=== PATIENT | male | born 1995 | race Two or more races ===

== ENCOUNTER 2024-07-12 17:17 | Inpatient (IN) | payer OTHER ==
[2024-07-12 19:55] VITALS: BMI 26.6
[2024-07-12] MEDS ORDERED: chlordiazePOXIDE HCL 25 MG CAPSULE PO PRN (20:31)
[2024-07-12] MEDS ORDERED: BENZOCAINE/MENTHOL (CHLORASEPTIC ) LOZENGE MM PRN (20:32)
[2024-07-12] MEDS ORDERED: DICYCLOMINE HCL 10 MG CAPSULE PO PRN (20:32)
[2024-07-12] MEDS ORDERED: BISMUTH SUBSALICYLATE 524 MG/30 ML PO PRN (20:32)
[2024-07-12] MEDS ORDERED: guaiFENesin 600 MG TABLET.ER (FP) PO PRN (20:32)
[2024-07-12] MEDS ORDERED: MAGNESIUM HYDROX 2400MG/30ML ORAL SUSPENSION 30 ML CUP PO PRN (20:32)
[2024-07-12] MEDS ORDERED: ACETAMINOPHEN 325 MG TABLET (FP) PO PRN (20:32)
[2024-07-12] MEDS ORDERED: ONDANSETRON *ODT* 4 MG TABLET SL PRN (20:32)
[2024-07-12] MEDS ORDERED: LOPERAMIDE HCL 2 MG CAPSULE PO PRN (20:32)
[2024-07-12] MEDS ORDERED: BENZONATATE 200 MG CAPSULE PO PRN (20:32)
[2024-07-12] MEDS ORDERED: POLYETHYLENE GLYCOL (HEALTHYLAX) 3350 17 GM PACKET PO PRN (20:32)
[2024-07-12] MEDS ORDERED: MAG HYDROX/AL HYDROX/SIMETH 30 ML UNIT-DOSE CUP PO PRN (20:32)
[2024-07-12] MEDS ORDERED: P-EPHED 60MG/TRIPROLIDI 2.5MG TABLET PO PRN (20:32)
[2024-07-12] MEDS ORDERED: IBUPROFEN 600 MG TABLET (FP) PO PRN (20:32)
[2024-07-12] MEDS ORDERED: IBUPROFEN 400 MG TABLET (FP) PO PRN (20:32)
[2024-07-12] MEDS ORDERED: chlordiazePOXIDE HCL 25 MG CAPSULE ONE (21:46)
[2024-07-12] MEDS ORDERED: propRANOLol HCL 10 MG TABLET ONE (21:46)
[2024-07-12] MEDS: propRANOLol HCL 10 MG TABLET PO ONE (21:50)
[2024-07-12] MEDS: chlordiazePOXIDE HCL 25 MG CAPSULE PO ONE (21:51)
[2024-07-12] MEDS: MELATONIN 5 MG TABLETS PO SCH (22:50)
[2024-07-12] MEDS: METHOCARBAMOL 500 MG TABLET PO PRN (22:50)
[2024-07-12] MEDS: hydrOXYzine PAMOATE 25 MG CAPSULE (FP) PO PRN (22:50)
[2024-07-12] MEDS: THIAMINE 100 MG TABLET PO SCH (22:51)
[2024-07-12] MEDS: SILVER SULFADIAZINE 1% TOP CREAM 50 GM JAR TP SCH (22:58)
[2024-07-12] MEDS: chlordiazePOXIDE HCL 25 MG CAPSULE PO SCH (23:47)
[2024-07-13] MEDS: PRENATAL VITAMINS W/ FOLIC ACID TABLET (FP) PO SCH (10:12)
[2024-07-13 13:32] LABS: HEMATOCRIT 36.6 % (35.4-49); HEMOGLOBIN 12.1 GM/dL (11.7-16.9); MCH 30.2 pg (25.7-33.7); MEAN CELL VOLUME 91.7 fl (80-96); MEAN PLT VOLUME 7.4 fl (7.5-11.1); PLATELET COUNT 310 10^3/uL (134-434); RBC 3.99 M/mm3 (4.00-5.60); RDW 16.2 % (11.9-15.9); WHITE BLOOD COUNT 4.1 K/mm3 (4.0-10.0)
[2024-07-13 15:15] LABS: CHLORIDE 108 mmol/L (98-107); POTASSIUM 4.2 mmol/L (3.5-5.1); SODIUM 143 mmol/L (136-145)
[2024-07-13 15:19] LABS: ALBUMIN 3.6 g/dl (3.4-5.0); ANION GAP 9 mmol/L (4-13); BLOOD UREA NITROGEN 12.9 mg/dL (7-18); CO2 26 mmol/L (21-32)
[2024-07-13 15:21] LABS: GLUCOSE,RANDOM 105 mg/dL (74-106)
[2024-07-13 15:22] LABS: CREATININE 0.7 mg/dL (0.55-1.3); SGOT/AST 145 U/L (15-37); SGPT/ALT 329 U/L (13-61)
[2024-07-13 15:24] LABS: BILIRUBIN,TOTAL 0.4 mg/dL (0.2-1); TOT PROT 6.5 g/dl (6.4-8.2)
[2024-07-13 15:25] LABS: ALK PHOS 106 U/L (45-117)
[2024-07-13] MEDS: SUVOREXANT 10 MG TABLET PO PRN (22:22)
[2024-07-14] MEDS: chlordiazePOXIDE HCL 25 MG CAPSULE PO SCH (06:01)
[2024-07-15] MEDS ORDERED: chlordiazePOXIDE HCL 10 MG CAPSULE PO PRN
[2024-07-15] MEDS: chlordiazePOXIDE HCL 10 MG CAPSULE PO SCH (05:35)
[2024-07-15 09:56] LABS: BASO % 1.4 % (0-2.0); EOS % 1.7 % (0-4.5); HEMATOCRIT 35.7 % (35.4-49); HEMOGLOBIN 11.8 GM/dL (11.7-16.9); LYMPH % 31.6 % (8-40); MCH 30.3 pg (25.7-33.7); MCHC 33.1 g/dl (32.0-35.9); MEAN CELL VOLUME 91.5 fl (80-96); MEAN PLT VOLUME 7.8 fl (7.5-11.1); MONO % 7.8 % (3.8-10.2); NEUT % 57.5 % (42.8-82.8); PLATELET COUNT 278 10^3/uL (134-434); RDW 16.8 % (11.9-15.9); WHITE BLOOD COUNT 5.4 K/mm3 (4.0-10.0)
[2024-07-15 10:03] LABS: POTASSIUM 3.8 mmol/L (3.5-5.1)
[2024-07-15 10:07] LABS: CALCIUM 8.9 mg/dL (8.5-10.1)
[2024-07-15 10:08] LABS: ALBUMIN 3.6 g/dl (3.4-5.0); BLOOD UREA NITROGEN 9.4 mg/dL (7-18)
[2024-07-15 10:11] LABS: CREATININE 0.7 mg/dL (0.55-1.3)
[2024-07-15 10:12] LABS: BILIRUBIN,TOTAL 0.3 mg/dL (0.2-1); TOT PROT 6.1 g/dl (6.4-8.2)
[2024-07-16] MEDS: chlordiazePOXIDE HCL 10 MG CAPSULE PO SCH (05:34)
[2024-07-16] MEDS: NALOXONE (NYS OPIOID OVERDOSE PROGRAM) 4 MG/0.1 ML SPRAY NS SCH (21:39)
[2024-07-17] MEDS: chlordiazePOXIDE HCL 10 MG CAPSULE PO ONE (05:47)
[2024-07-17 10:56] VITALS: RESP 18
[2024-07-17 14:59] VITALS: BP 135/82; PULSE 101; TEMP 98
== END 2024-07-17 14:35 | disposition other institution (70) | DRG 775 ==
LOC: EDBD 17:17 → YASAS 17:17 → Y3N 22:19
PROVIDERS: ADMIT Allergy & Immunology; ATTEND Surgery
PROC: HZ2ZZZZ Detoxification Services for Substance Abuse Treatment (ICD-10-PCS; principal; 2024-07-12)
DX: F10.230 Alcohol dependence with withdrawal, uncomplicated (principal); G47.00 Insomnia, unspecified; R74.01 Elevation of levels of liver transaminase levels
CPT/HCPCS: 36415; 80053; 80307; 85025; 85027; 86780; 93005; 93010

== ENCOUNTER 2024-07-17 15:42 | Inpatient (IN) | payer OTHER ==
[2024-07-17] MEDS ORDERED: LOPERAMIDE HCL 2 MG CAPSULE PO PRN (18:51)
[2024-07-17] MEDS ORDERED: IBUPROFEN 400 MG TABLET (FP) PO PRN (18:51)
[2024-07-17] MEDS ORDERED: NICOTINE POLACRILEX 2 MG LOZENGE BC PRN (18:51)
[2024-07-17] MEDS ORDERED: ACETAMINOPHEN 325 MG TABLET (FP) PO PRN (18:51)
[2024-07-17] MEDS ORDERED: METHOCARBAMOL 500 MG TABLET PO PRN (18:51)
[2024-07-17] MEDS ORDERED: NALOXONE HCL 0.4 MG/ML VIAL IVPUSH PRN (18:51)
[2024-07-17] MEDS ORDERED: MAG HYDROX/AL HYDROX/SIMETH 30 ML UNIT-DOSE CUP PO PRN (18:51)
[2024-07-17] MEDS ORDERED: NICOTINE POLACRILEX 2 MG GUM BUC PRN (18:51)
[2024-07-17] MEDS ORDERED: IBUPROFEN 600 MG TABLET (FP) PO PRN (18:51)
[2024-07-17] MEDS ORDERED: guaiFENesin 600 MG TABLET.ER (FP) PO PRN (18:51)
[2024-07-17] MEDS ORDERED: BENZOCAINE/MENTHOL (CHLORASEPTIC ) LOZENGE MM PRN (18:51)
[2024-07-17] MEDS ORDERED: MAGNESIUM HYDROX 2400MG/30ML ORAL SUSPENSION 30 ML CUP PO PRN (18:51)
[2024-07-17] MEDS ORDERED: NALOXONE (NARCAN) HCL 4 MG/0.1 ML SPRAY NS PRN (18:51)
[2024-07-17] MEDS ORDERED: BENZONATATE 200 MG CAPSULE PO PRN (18:51)
[2024-07-17] MEDS ORDERED: POLYETHYLENE GLYCOL (HEALTHYLAX) 3350 17 GM PACKET PO PRN (18:51)
[2024-07-17] MEDS: MELATONIN 5 MG TABLETS PO SCH (21:06)
[2024-07-17] MEDS: hydrOXYzine PAMOATE 25 MG CAPSULE (FP) PO PRN (21:06)
[2024-07-17] MEDS: THIAMINE 100 MG TABLET PO SCH (21:06)
[2024-07-18] MEDS: PRENATAL VITAMINS W/ FOLIC ACID TABLET (FP) PO SCH (09:30)
[2024-07-18] MEDS: traZODone HCL 100 MG TABLET (FP) PO SCH (21:24)
[2024-07-19] MEDS: DISULFIRAM 250 MG TABLET PO SCH (12:27)
[2024-07-19] MEDS: BACITRACIN 0.9 GM PACKET TP SCH (12:28)
[2024-07-19] MEDS: DOXYCYCLINE HYCLATE 100 MG TABLET PO SCH (17:41)
[2024-07-20 14:06] LABS: INR 0.92 (0.83-1.09); PROTHROMBIN TIME (PATIENT) 10.6 SEC (9.7-13.0)
[2024-07-28 07:01] VITALS: RESP 18
[2024-07-30 06:57] VITALS: TEMP 97.7
[2024-07-31 06:55] VITALS: BP 119/68; PULSE 88
[2024-07-31] MEDS ORDERED: NALOXONE (NYS OPIOID OVERDOSE PROGRAM) 4 MG/0.1 ML SPRAY NS SCH (10:15)
== END 2024-07-31 17:30 | disposition home or self-care (01) | DRG 772 ==
LOC: YASAS 15:42 → Y5N 15:43 → Y3NR 07-20 18:27 → Y5N 07-20 18:28
PROVIDERS: ADMIT Psychiatry & Neurology Pain Medicine; ATTEND Family Medicine Addiction Medicine
PROC: HZ42ZZZ Group Counseling for Substance Abuse Treatment, Cognitive-Behavioral (ICD-10-PCS; principal; 2024-07-17)
DX: F10.20 Alcohol dependence, uncomplicated (principal); F19.282 Other psychoactive substance dependence with psychoactive substance-induced sleep disorder; F32.A Depression, unspecified; E72.20 Disorder of urea cycle metabolism, unspecified; L08.89 Other specified local infections of the skin and subcutaneous tissue
CPT/HCPCS: 36415; 82140; 85610